=== PATIENT | female | born 1955 | race African-American/Black ===

== ENCOUNTER 2016-08-16 14:43 | Emergency (ER) | payer MEDICARE, OTHER ==
--- NOTE | ~2016-08-16 | CR231 ---
[facility] A Service of [facility] & [facility] RADIOLOGY TEXT RESULTS PATIENT: PALOMA MELO LOCATION: SELIN : 53 UNIT #: [id number] AGE: [address]: Jennyfer Bradley MD SEX: F ORDER DR: [id number] [facility] [address]. [place], [place] [address] [id number] E MR#: [id number] Acc #: [id number] NAME: PALOMA MELO : 1955 SEX: F STUDY DATE/TIME: 08/16/2016 13:55 UNIT: SELIN ROOM: STUDY DESCRIPTION: CR Shunt Series Attending Physician: Jennyfer Bradley M.D. Ordering Physician: Jennyfre Bradley M.D. Primary Care Physician: Silverio Garvey M.D. MEDICAL IMAGING REPORT This report is preliminary unless electronic signature is present EXAM Shunt series 08/16/2016 HISTORY Headache for 2 weeks. History of shunt. FINDINGS There is a right parietooccipital shunt catheter, and catheter tubing appears contiguous into the abdomen. IMPRESSION Intact shunt. Dictated by... Isrrael Linares M.D. THIS IS AN ELECTRONICALLY VERIFIED REPORT Isrrael Linares M.D. at 08/19/2016 3:48 PM SAJI/christen TD: 08/16/2016 17:21 JOB #: [id number] MEDICAL IMAGING REPORT COPY
--- NOTE | ~2016-08-16 | CT71 ---
[facility] A Service of [facility] RADIOLOGY TEXT RESULTS PATIENT: PALOMA MELO LOCATION: SELIN : 53 UNIT #: [id number] AGE: [address]: Jennyfer Bradley MD SEX: F ORDER DR: [id number] [facility] [address] [facility]. [place], [place] [address] [id number] E MR#: [id number] Acc #: [id number] NAME: PALOMA MELO : 1955 SEX: F STUDY DATE/TIME: 08/16/2016 14:48 UNIT: SELIN ROOM: STUDY DESCRIPTION: CT Head Wo Contrast Attending Physician: Jennyfer Bradley M.D. Ordering Physician: Jennyfer Bradley M.D. Primary Care Physician: Silverio Garvey M.D. MEDICAL IMAGING REPORT This report is preliminary unless electronic signature is present EXAM Head CT no contrast, 08/16/[address]/PET SCAN 05/04/2016. CLINICAL HISTORY History of parietal shunt catheter with 2 week history of headaches. There is concern about possible shunt malfunction. TECHNIQUE This CT exam was performed with one or more of the following radiation dose reduction techniques: automatic exposure control, adjustment of mA and/or kV according to patient size, and iterative reconstruction. FINDINGS Shunt catheter remains and there is stable right ventriculomegaly. There is no change in ventricle volumes or the appearance of the brain otherwise since a head CT of 05/04/2016. There is no hemorrhage or mass or extraaxial fluid collection. IMPRESSION Stable extensive chronic postop changes. No acute appearing abnormality and no interval change since 05/04/2016. Dictated by... Isrrael Linares M.D. THIS IS AN ELECTRONICALLY VERIFIED REPORT Isrrael Linares M.D. at 08/19/2016 3:48 PM TEV/ljd [facility] A Service of [facility] & [facility] RADIOLOGY TEXT RESULTS PATIENT: PALOMA MELO LOCATION: SELIN : 53 UNIT #: [id number] AGE: [address]: Jennyfer Bradley MD SEX: F ORDER DR: TD: 08/16/2016 21:26 JOB #: [id number] MEDICAL IMAGING REPORT COPY
== END 2016-08-16 16:45 ==
LOC: CED 14:43
DX: R51 Headache (principal); Z88.8 Allergy status to other drugs, medicaments and biological substances
CPT/HCPCS: 70450; 75809; 99284